=== PATIENT | female | born 1970 | race Caucasian/White ===

== ENCOUNTER 2016-07-06 20:12 | Inpatient (IN) | payer BC ==
--- NOTE | ~2016-07-06 | HP ---
History And Physical [id number] [facility] [place]. [address] NAME: SALOMON GREEN : 74 STATUS : ADM Mitra PAT#: [id number] AGE: 46 ADM/REG DATE : 07/06/16 MR#: [id number] REPORT SERV DATE: 07/07/16 DICTATED BY: DONN SALAS DATE: 07/07/16 REPORT STATUS : Draft TRANSCRIBED BY: MODL DATE: 07/07/16 DATE OF ADMISSION: 07/06/2016 CHIEF COMPLAINT: Severe diarrhea and black tarry stools. HISTORY OF PRESENT ILLNESS: This is a 46-year-old female with no significant past medical history who presents to the emergency room at [facility] with the above-mentioned complaint. History is obtained from the patient and reviewing data available on the [facility] system. According to Ms. Green, she had been in her usual state of health until recently and last Thursday she started having diarrhea. The diarrhea she says was watery, initially it was clear and then it became yellow to brownish. Yesterday, in the afternoon, she experienced some epigastric discomfort, after which, she started having black tarry stools. This became quite frequent and she saw some blood in the toilet as well and she decided to come to the emergency room right away. Upon further questioning, she states she had some myalgia, joint pains during this whole time, and she had taken some ibuprofen and Tylenol as well. In the emergency room, she had about three to four episodes of black tarry stools as well. In the emergency room, initial workup including a Hemoccult test was positive. She had hypokalemia and ongoing abdominal pain as well. Hospitalist Service is asked to admit her for further evaluation and treatment. At the time of my evaluation, she denied any chest pain, palpitations, or orthopnea. She had no cough, hemoptysis, night sweats, or weight loss. She has not had any recent falls or loss of consciousness. No history of fevers, chills, nausea, or vomiting. She did have diarrhea as mentioned above. She denied any hematemesis or hematuria. No other history of recent travel or exposures. PAST MEDICAL HISTORY: Significant for none. SOCIAL HISTORY: She does not smoke, drink, or use recreational drugs. FAMILY HISTORY: Noncontributory. MEDICATIONS: At home were reviewed by me in the chart today and reordered by me. REVIEW OF SYSTEMS: As in history of present illness. All other systems were reviewed in detail and are quite unremarkable. PHYSICAL EXAMINATION: GENERAL: This is a pleasant 46-year-old, not in any acute distress. HEENT: Her head is atraumatic, normocephalic. She is alert, awake, oriented to time, place, and person. Her pupils are equal, reacting to light and accommodating. External ocular muscles are intact. Membranes are moist and pink. Sclerae are nonicteric. History And Physical [address] [address] NAME: SALOMON GREEN : 74 STATUS : ADM Mitra PAT#: [id number] AGE: 46 ADM/REG DATE : 07/06/16 MR#: [id number] REPORT SERV DATE: 07/07/16 DICTATED BY: DONN SALAS DATE: 07/07/16 REPORT STATUS : Draft TRANSCRIBED BY: JUSTIN DATE: 07/07/16 NECK: Supple with no jugular venous distention, lymphadenopathy, or thyromegaly. LUNGS: Clear to auscultation with no wheezes, rubs, or crackles. HEART: Heart sounds were regular with no murmurs, rubs, or gallops. ABDOMEN: Soft, nontender. Bowel sounds are present. EXTREMITIES: Showed no cyanosis, clubbing, or edema. NEUROLOGIC: Grossly intact. No focal sensory or motor deficits. Higher functions appeared intact. VITAL SIGNS: Her vital signs today showed a temperature of 98.3, pulse 138, respirations 20 a minute, blood pressure was 113/57, oxygen saturations were 98%, breathing 2 L of oxygen via nasal cannula. LABORATORY DATA: Reviewed on the [facility] system showed a pH of 7.41, pCO2 was 28, PO2 of 101, bicarb was 17.2. This was on room air. CMP showed a sodium of 139, potassium 3.3, chloride 110, and CO2 of 17. BUN was 12 with a creatinine of 0.77. Blood glucose was 109. Her lipase was 84 today. CBC was essentially within normal limits. Urinalysis was not done. Films of the CT scan of her abdomen and pelvis were reviewed by me on the PACS today and interpreted by me. Official radiology comment was also reviewed. There were multiple fluids with gas throughout the colon suggestive of diarrhea. IMPRESSION: 1. Severe diarrhea. 2. Acute gastrointestinal bleeding. 3. Hypokalemia. 4. Abdominal pain. 5. Respiratory alkalosis with metabolic acidosis. PLAN: We will admit Mrs. Green to the Hospitalist Service with telemetry for a 24-hour observation period. We will go ahead and monitor hemoglobin and hematocrit levels every six hours, type cross and transfuse if indicated. We will also consult Gastroenterology Service to see her in the morning. Meanwhile, keep her n.p.o. and check her lactate and other indices at this point. We have stool studies pending. We have also added fecal leukocytes, ova and parasites, cultures, and C. diff assay as well. We will replace potassium at this time. Follow chemistry, electrolytes, and replace as needed. She will have a stat CBC right now. Meanwhile, we will go ahead and control pain. Start her on IV fluids for volume and place her on SCDs for DVT prophylaxis. Further recommendations will follow after GI has had a chance to see her. I have discussed the above plans with the patient and her father. Questions were answered, and they are agreeable to the above recommendations. Hospitalist Service will be following her during her stay here. /JUSTIN Donn Salas M.D. History And Physical [address] [address] NAME: SALOMON GREEN : 74 STATUS : ADM Mitra PAT#: [id number] AGE: 46 ADM/REG DATE : 07/06/16 MR#: [id number] REPORT SERV DATE: 07/07/16 DICTATED BY: DONN SALAS DATE: 07/07/16 REPORT STATUS : Draft TRANSCRIBED BY: JUSTIN DATE: 07/07/16 / [id number] CC: Song Woodard M.D.
--- NOTE | ~2016-07-06 | DS ---
Discharge Summary [address] [place]. [address] NAME: SALOMON GREEN : 74 STATUS : DIS Mitra PAT#: [id number] AGE: 46 ADM/REG DATE : 07/06/16 MR#: [id number] REPORT SERV DATE: 07/09/16 DICTATED BY: RAFAELA GOODWIN DATE: 07/08/16 REPORT STATUS : Draft TRANSCRIBED BY: MODPadma DATE: 07/08/16 ADMISSION DATE: 07/06/2016 DISCHARGE DATE: 07/08/2016 The patient was admitted to the Hospitalist Service. CONSULTANTS: Dr. Celso Hall, Gastroenterology. DISCHARGE DIAGNOSES: 1. Severe diarrhea, resolved. 2. Viral gastroenteritis. 3. Hypokalemia, resolved. 4. Transient hypotension, resolved. 5. Abdominal pain, resolved. IMAGING AND DIAGNOSTICS: CT of abdomen and pelvis on 07/07/2016 revealed no acute GI or obstruction, is seen small hepatic cysts, benign and stable from 2009. HISTORY OF PRESENT ILLNESS: For complete history, please refer to admission H and P by Dr. Ann. Briefly, Ms. Green is a 46-year-old female who presented to the emergency room with complaints of severe diarrhea with black tarry stools and epigastric discomfort. In the emergency room, she had a positive Hemoccult as well as hypokalemia. She was admitted to the Hospitalist Service for further evaluation and treatment. HOSPITAL COURSE: Ms. Green was admitted to a telemetry bed and a GI consult was requested. Her initial diagnoses were acute GI bleeding, severe diarrhea and hypokalemia. She was placed n.p.o. Laboratory studies were ordered including blood cultures, stool for O and P, leukocytes and C. diff. She also had serial hemoglobin and hematocrit ordered. She was given IV fluids, lactated Ringer's 1 L bolus, then 150 mL/h. With possible gastrointestinal bleeding she was placed on BOBY Hose Knee High with sequential hose for DVT prophylaxis. She was provided with antiemetics and pain medications as needed. I initially saw Ms. Green on 07/07/2016 in the early afternoon. She reported three liquid stools since her coming up to the room from the emergency room. She had some crampy like feeling discomfort in her lower abdomen; however, she denied any nausea or vomiting. Initially, she was n.p.o. and awaiting the petroleum refinery laborer. That afternoon, she was seen by Dr. Celso Hall, who felt that this was likely a viral gastroenteritis, not a GI bleed. She had no further evidence of bleeding. Stool for occult blood was negative. Dr. Hall increased her diet to a low- residue diet. On the morning of 07/08/2016, Ms. Green was feeling much better. She describes a little bit of an upset stomach earlier in the morning with three loose stools; however, her stools were more formed since the prior day. She was ambulatory in the room without symptoms, wanting to go home. She was tolerating her diet, having no nausea and vomiting. However, party chief and overnight, she was hypotensive with a blood pressure of 82/52 and 88/50. Therefore, we did continue her IV fluids until noon on this date and orthostatic vital signs were ordered and they are as follows: At 11 o'clock supine blood pressure 110/65, sitting 108/55 and standing 110/66; at 3 p.m. supine blood pressure 97/61, heart rate 74, sitting 98/65, heart rate 79 and standing 108/60, heart rate 89. She was Discharge Summary [address] [address] NAME: SALOMON GREEN : 74 STATUS : DIS Mitra PAT#: [id number] AGE: 46 ADM/REG DATE : 07/06/16 MR#: [id number] REPORT SERV DATE: 07/09/16 DICTATED BY: RAFAELA GOODWIN DATE: 07/08/16 REPORT STATUS : Draft TRANSCRIBED BY: MODPadma DATE: 07/08/16 ambulatory without symptoms in no distress and eating and drinking normally. Therefore, without symptoms, it was felt that Ms. Green could be discharged home safely this afternoon. LABORATORY STUDIES: 1. 07/08/2016, a basic metabolic panel revealed a sodium of 143, potassium 4, chloride 113, CO2 of 19, BUN 6, creatinine 0.49, GFR 118, glucose 84, calcium 7.9, magnesium 1.9. 2. 07/08/2016,CBC revealed a white count of 3.6, RBC 4.19, hemoglobin 12.2, hematocrit 35.2, platelets 188,000. 3. Blood cultures are negative x2 at 24 hours. 4. Stool for occult blood was negative. 5. Stool for C. diff was negative. 6. Stool for Giardia and Cryptosporidium were negative. Stool for leukocytes was within normal limits and stool for Shiga toxin, no Shiga toxin detected. 7. A urinalysis revealed negative protein, negative glucose, large blood, trace leukocyte esterase. Microscopic urinalysis revealed nine rbcs and eight wbcs. DISCHARGE INSTRUCTIONS: 1. Diet as tolerated, low residue recommended. 2. Activity as tolerated. DISCHARGE MEDICATIONS: Her only home medicine is thiamine 500 mg p.o. daily. OTHER DISCHARGE INSTRUCTIONS: Ms. Green will follow up with her primary care provider, Dr. Christian Segundo in 7 to 10 days. NGA/JUSTIN LILY JohnsonNAVOS [facility] / [id number] CC: Song Ramon M.D.
--- NOTE | ~2016-07-06 | CN ---
Consultation Report [address] [place]. [address] NAME: SALOMON REHMAN : 74 STATUS : ADM Mitra PAT#: [id number] AGE: 46 ADM/REG DATE : 07/06/16 MR#: [id number] REPORT SERV DATE: 07/08/16 DICTATED BY: ENEDINA MONAHAN DATE: 07/08/16 REPORT STATUS : Draft TRANSCRIBED BY: JUSTIN DATE: 07/08/16 CONSULTATION DATE OF CONSULTATION: 07/07/2016 LOCATION: Bed 131. CHIEF COMPLAINT: I am asked to see this lady with bowel difficulty. This 46-year-old woman is in generally good health. She developed a rather sudden onset of periumbilical pain, associated with nausea and vomiting. She had intermittent diarrhea which at times showed bright red blood. She did notice black tarry stools on 1 occasion. She denied chills or fever, but did have myalgias and arthralgias. REVIEW OF SYSTEMS: General review of systems, otherwise unremarkable. PAST MEDICAL HISTORY: Negative. Evaluation in the emergency room showed a positive Hemoccult. CBC within normal limits. CT of the abdomen showed multiple gas fluid levels throughout the small intestine. PHYSICAL EXAMINATION: HEAD, EYES, EARS, NOSE, AND THROAT: Normal. NECK: Supple. CHEST: Clear. CARDIAC: Regular rhythm without rubs or murmurs. ABDOMEN: Soft and minimally tender. Bowel sounds active. No palpable mass. IMPRESSION: Almost certainly acute gastroenteritis. She is convalescing well. PLAN: Progress diet to low residue. Can consider early discharge here. We will see as an outpatient for consideration for followup endoscopy. Thank you for allowing me to see this lady. AILEEN/JUSTIN Enedina Monahan M.D. / [id number] Consultation Report [address]. [address] NAME: SALOMON REHMAN : 74 STATUS : ADM Mitra PAT#: [id number] AGE: 46 ADM/REG DATE : 07/06/16 MR#: [id number] REPORT SERV DATE: 07/08/16 DICTATED BY: ENEDINA MONAHAN DATE: 07/08/16 REPORT STATUS : Draft TRANSCRIBED BY: JUSTIN DATE: 07/08/16 CC: Song Ramon M.D.
[~2016-07-06 20:12] MED LIST: NO HOME MEDS
[2016-07-06 20:36] LABS: BASOPHILS 0.2 %; BASOPHILS ABSOLUTE 0.01 10/3/uL (0.0-0.16); EOSINOPHILS 0.5 %; EOSINOPHILS ABSOLUTE 0.03 10/3/uL (0.0-0.53); ER CBC TAT 0 Hrs 05 Mins; HEMATOCRIT 40.4 % (36.0-48.0); HEMOGLOBIN 14.2 g/dL (12.0-16.0); IMMATURE GRANULOCYTES 0.6 %; IMMATURE GRANULOCYTES ABSOLUTE 0.04 10/3/uL (0.0-0.11); LYMPHOCYTES 9.2 %; MEAN CORPUS HGB CONC 35.1 g/dL (32.0-36.0); MEAN CORPUSCULAR HEMOGLOB 29.2 pg (26.0-34.0); MEAN PLATELET VOLUME 8.9 fL (9.2-13.0); MONOCYTES 10.7 %; NEUTROPHILS 78.8 %; NEUTROPHILS ABSOLUTE 5.16 10/3/uL (2.02-8.40); PLATELET COUNT 239 10/3/uL (150-400); RBC DISTRIBUTION WIDTH 14.1 % (12.0-16.0); RED CELL COUNT 4.87 10/6/uL (4.0-5.6); WHITE BLOOD CELLS 6.5 10/3/uL (4.5-10.5)
[2016-07-06 20:37] LABS: MANUAL DIFF NO %
[2016-07-06 20:52] LABS: A/G RATIO 0.8 (0.7-1.9); ALBUMIN 3.7 G/DL (3.5-5.0); ALKALINE PHOSPHATASE 58 U/L (45-117); BUN (BLOOD UREA NITROGEN) 12 MG/DL (6-23); CALCIUM, SERUM 8.3 MG/DL (8.5-10.4); CHLORIDE, SERUM 110 MMOL/L (96-112); CO2 (CARBON DIOXIDE) 17 MMOL/L (24-34); CREATININE 0.77 MG/DL (0.55-1.02); GFR AFRICAN AMERICAN 109 ML/MIN (>=60); GFR NON AFRICAN AMERICAN 94 ML/MIN (>=60); GLOBULIN 4.6 G/DL (2.5-4.1); GLUCOSE, SERUM 109 MG/DL (60-99); POTASSIUM, SERUM 3.3 MMOL/L (3.5-5.3); SGOT(AST) 24 U/L (5-40); SGPT(ALT) 18 U/L (5-65); SODIUM, SERUM 139 MMOL/L (135-148); TOTAL BILIRUBIN 0.9 MG/DL (0-1.2); TOTAL PROTEIN 8.3 G/DL (6.0-8.5)
[2016-07-07 01:59] LABS: INFLUENZA A SCREEN NEGATIVE (NEGATIVE); INFLUENZA B SCREEN NEGATIVE (NEGATIVE)
[2016-07-07 04:05] LABS: CARBOXYHEMOGLOBIN 0.8 % (0-3); HCO3 (ACTUAL BICARBONATE) 17.2 MEQ/L (23-27); HEMOBLOGIN CONTENT 13.4 G/DL (12-16); INSTRUMENT SERIAL # 8087; METHEMOGLOBIN 0.1 % (0-3); O2 CONTENT 18.4 VOL% (18-24); PCO2 (CO2 TENSION) 28 MMHG (35-45); PO2 (O2 TENSION) 101 MMHG (79-93); SAMPLE Arterial; pH 7.41 (7.37-7.43)
[2016-07-07 06:04] LABS: HEMATOCRIT 39.1 % (36.0-48.0); HEMOGLOBIN 13.4 g/dL (12.0-16.0)
[2016-07-07] MEDS ORDERED: VITAMIN B-1500 MG PO (06:17)
[2016-07-07 09:00] LABS: BUN (BLOOD UREA NITROGEN) 10 MG/DL (6-23); CALCIUM, SERUM 7.4 MG/DL (8.5-10.4); CHLORIDE, SERUM 113 MMOL/L (96-112); CO2 (CARBON DIOXIDE) 16 MMOL/L (24-34); CREATININE 0.65 MG/DL (0.55-1.02); GFR AFRICAN AMERICAN 125 ML/MIN (>=60); GFR NON AFRICAN AMERICAN 108 ML/MIN (>=60); PHOSPHORUS, SERUM 2.1 MG/DL (2.5-4.5); POTASSIUM, SERUM 3.8 MMOL/L (3.5-5.3); SODIUM, SERUM 142 MMOL/L (135-148)
[2016-07-07 09:01] LABS: GLUCOSE, SERUM 84 MG/DL (60-99)
[2016-07-07 13:05] LABS: HEMATOCRIT 38.2 % (36.0-48.0); HEMOGLOBIN 12.9 g/dL (12.0-16.0)
[2016-07-07 15:29] LABS: ASCORBIC ACID (UR NOT ORDER) NEG (NEG); BILIRUBIN, URINE NEGATIVE (NEG); ER URINALYSIS TAT 0 Hrs 14 Mins; KETONE, URINE TRACE MG/DL (NEG); LEUKOCYTE ESTERASE(NOT OR TRACE (NEG); NITRITE (URINE) NEG (NEG); WBC (NOT ORDERED) (RFLEX) 3 (0-5)
[2016-07-07 15:31] LABS: LACTATE 0.4 MMOL/L (0.3-2.4)
[2016-07-07 20:30] LABS: HEMATOCRIT 36.4 % (36.0-48.0); HEMOGLOBIN 12.6 g/dL (12.0-16.0)
[2016-07-08 01:25] LABS: HEMATOCRIT 34.3 % (36.0-48.0); HEMOGLOBIN 11.8 g/dL (12.0-16.0)
[2016-07-08 06:33] LABS: BASOPHILS 0.6 %; BASOPHILS ABSOLUTE 0.02 10/3/uL (0.0-0.16); EOSINOPHILS 2.2 %; EOSINOPHILS ABSOLUTE 0.08 10/3/uL (0.0-0.53); HEMATOCRIT 35.2 % (36.0-48.0); HEMOGLOBIN 12.2 g/dL (12.0-16.0); IMMATURE GRANULOCYTES 0.6 %; IMMATURE GRANULOCYTES ABSOLUTE 0.02 10/3/uL (0.0-0.11); LYMPHOCYTES 41.4 %; LYMPHOCYTES ABSOLUTE 1.49 10/3/uL (0.67-4.30); MEAN CORPUS HGB CONC 34.7 g/dL (32.0-36.0); MEAN CORPUSCULAR HEMOGLOB 29.1 pg (26.0-34.0); MONOCYTES ABSOLUTE 0.54 10/3/uL (0.21-1.20); NEUTROPHILS 40.2 %; NEUTROPHILS ABSOLUTE 1.45 10/3/uL (2.02-8.40); PLATELET COUNT 188 10/3/uL (150-400); RBC DISTRIBUTION WIDTH 14.3 % (12.0-16.0); RED CELL COUNT 4.19 10/6/uL (4.0-5.6)
[2016-07-08 06:35] LABS: MANUAL DIFF NO %; WHITE BLOOD CELLS 3.6 10/3/uL (4.5-10.5)
[2016-07-08 06:43] LABS: CALCIUM, SERUM 7.9 MG/DL (8.5-10.4); CHLORIDE, SERUM 113 MMOL/L (96-112); CO2 (CARBON DIOXIDE) 19 MMOL/L (24-34); CREATININE 0.49 MG/DL (0.55-1.02); GFR AFRICAN AMERICAN 137 ML/MIN (>=60); GFR NON AFRICAN AMERICAN 118 ML/MIN (>=60); GLUCOSE, SERUM 84 MG/DL (60-99); SODIUM, SERUM 143 MMOL/L (135-148)
[2016-07-08 06:49] LABS: BUN (BLOOD UREA NITROGEN) 6 MG/DL (6-23)
[2016-07-08 06:56] LABS: ASCORBIC ACID (UR NOT ORDER) NEG (NEG); BILIRUBIN, URINE NEGATIVE (NEG); KETONE, URINE 20 MG/DL (NEG); LEUKOCYTE ESTERASE(NOT OR TRACE (NEG); WBC (NOT ORDERED) (RFLEX) 8 (0-5)
[2016-07-08 11:01] LABS: PHOSPHORUS, SERUM 2.6 MG/DL (2.5-4.5)
== END 2016-07-08 17:06 | disposition home or self-care (01) | DRG 392 ==
LOC: ER 20:12 → 1SO 23:59
PROVIDERS: Hospitalist; Internal Medicine Pulmonary Disease; Nurse Practitioner; Specialist
DX: A08.4 Viral intestinal infection, unspecified (principal); E87.4 Mixed disorder of acid-base balance; I95.9 Hypotension, unspecified; E83.39 Other disorders of phosphorus metabolism; E87.6 Hypokalemia; Z90.49 Acquired absence of other specified parts of digestive tract; Z79.899 Other long term (current) drug therapy
CPT/HCPCS: 36600; 74176; 80048; 80053; 81001; 82270; 82272; 82805; 83605; 83690; 83735; 84100; 84132; 85014; 85018; 85025; 87040; 87045; 87046; 87046-59; 87328; 87329; 87493; 87493-59; 87804; 87899; 87899-59; 89055; 96374; 96375; 99285; A9270-GY; C9113; G0378